=== PATIENT | male | born 1950 | race Caucasian/White ===

== ENCOUNTER 2021-04-25 17:51 | Inpatient (IN) | payer OTHER, MEDICARE ==
[~2021-04-25] VITALS: Ht 185.4 cm; Wt 129.8 kg
--- NOTE | ~2021-04-25 | EMS ---
[address] [address] EMS Patient Care Report Name: JULI COTTRELL Room #: 436-P ADM IN M.R.#: [id number] Admission: 04/25/21 Attend Phys: Edgardo Sanchez MD Discharge: Date of : 48 Report #: [id number] THIS REPORT FOR: //name// Report Transmitted: 04/30/2021 11:03 EMS Care Summary [place], [place]/[facility] Incident [id number] @ 04/25/2021 17:09 Incident Location [address] [place] [address] Patient JERARDO COTTRELL Male, 70 Years 1950 Patient Address [address] [place] [address] Patient History Surgery,Cardiac - Stent, Patient Allergies No known allergies, Patient Medications Cipro, Chief Complaint weakness Disposition Transported No Lights/[place] Dispatch Reason Sick Person Transported To [facility] Narrative Dispatched to an apartment community in regards to a fall. Upon arrival, I saw patient sitting in a chair in the living room with on scene fire crew. Initial [address] [address] EMS Patient Care Report Name: JULI COTTRELL Room #: 436-P ADM IN Eun#: [id number] Admission: 04/25/21 Attend Phys: Edgardo Sanchez MD Discharge: Date of : 48 Report #: [id number] assessment revealed that patient was A&Ox4 and did not appear to be in respiratory distress. Patient's chief complaint was generalized weakness. Family stated that patient is usually able to ambulate unassisted but became weak suddenly and fell to the floor. The on scene fire crew assisted the patient into a chair in the living room. Physical assessment revealed that patient was cool, pale and diaphoretic. Transport was recommended to the patient and patient agreed. Patient was placed into a stair chair and secured. Patient was taken to the cot outside the building. Patient was transferred from the chair to the cot. Patient was then secured and lifted into the ambulance. Treatment rendered was obtaining 2 sets of baseline vital signs including a blood glucose reading, 3 lead ECG monitoring, 12 lead ECG tracing, established vascular access with a saline lock. Patient was transported to [facility] and radio report was given en route. Arrived at destination and patient care was transferred. Initial Vitals @17:35P: 106,R: 20,BP: 114/68,Pain: 0/10,GCS: 15,Glucose: 138,SpO2: 92,Revised Trauma: 12,PR Suspected: true @17:32P: 111,R: 18,BP: 111/64,Pain: 0/10,GCS: 15,SpO2: 95,Revised Trauma: 12, Assessments @17:44MENTAL:Time Oriented,Place Oriented,Person Oriented,Event Oriented,SKIN:Diaphoresis,Pale,Cold,HEENT:LUNG SOUNDS:ABDOMEN:PELVIS//GI:EXTREMITIES:PULSE:NEURO:No Abnormalities, Impression Generalized Weakness Procedures @17:41ALS AssessmentResponse: UnchangedSucceeded@17:41Saline Lock 10cc (18 ga) Site: Antecubital-LeftResponse: UnchangedSucceeded@17:3512-Lead ECGResponse: UnchangedSucceeded Timeline 17:07,Call Received 17:07,Dispatch Notified 17:09,Dispatched 17:10,En Route 17:16,On Scene 17:20,At Patient 17:32,BP: 111/64 M,PULSE: 111,RR: 18 R,SPO2: 95 Ox,ETCO2: ,BG: ,PAIN: 0,GCS: 15, 17:35,12-Lead ECG,Response: UnchangedSucceeded, 17:35,BP: 114/68 M,PULSE: 106,RR: 20 R,SPO2: 92 Ox,ETCO2: ,B,PAIN: 0,GCS: 15, 17:41,ALS Assessment,Response: UnchangedSucceeded, [address] [address] EMS Patient Care Report Name: JULI COTTRELL Room #: 436-P ADM IN M.R.#: [id number] Admission: 04/25/21 Attend Phys: Edgardo Sanchez MD Discharge: Date of : 48 Report #: [id number] 17:41,Saline Lock 10cc 18 ga Site: Antecubital-Left,Response: UnchangedSucceeded, 17:59,Depart Scene 17:59,At Destination 18:06,Call Closed Disclaimer v1.1 Copyright 2020 [employer] This EMS Care Summary contains data elements from the applicable legal record (which may be displayed differently). It is designed to provide pertinent information for the following purposes: continuity of care, clinical quality, and state data reporting. The complete legal record is available to ED staff and administrators of the receiving hospital in [employer]'s Patient Tracker. All data is provided "as is."
[2021-04-25 17:51] VITALS: BP 114/47
[~2021-04-25 17:51] MED LIST: ASPIR 8181 M1 PO; ZOCOR 10 MG TAB10 MG
[2021-04-25] MEDS ORDERED: TAMSULOSIN HCL0.4 MG PO (18:56)
[2021-04-25] MEDS ORDERED: ARMOUR THYROID60 M1 PO (18:56)
[2021-04-25] MEDS ORDERED: COZAAR 25 MG TA25 M1 PO (18:56)
[2021-04-25] MEDS ORDERED: NEURONTIN 300M300 M2 PO (18:57)
[2021-04-25] MEDS ORDERED: METOPROLOL TART25 MG PO (18:57)
[2021-04-25] MEDS ORDERED: HYDROCHLOROTH12.5 M1 PO (18:57)
[2021-04-25] MEDS ORDERED: SIMVASTATIN80 MG PO (18:59)
[2021-04-25] MEDS ORDERED: METFORMIN HCL500 M1 PO (18:59)
[2021-04-25 19:12] LABS: HEMATOCRIT 43.7 % (42.0-52.0); HEMOGLOBIN 13.9 gm/dL (14.0-18.0); MCHC 31.8 g/dL (28.0-37.0); MCV 91.4 fL (80.0-100.0); RBC 4.78 mil/uL (4.50-6.00); RDW 13.9 % (10.5-14.5)
[2021-04-25 19:12] LABS: URINE BILIRUBIN NEGATIVE (Negative); URINE BLOOD 3+ (Negative); URINE CLARITY SL CLOUDY; URINE COLOR YELLOW; URINE GLUCOSE-RANDOM* NEGATIVE (Negative); URINE KETONES NEGATIVE (Negative); URINE NITRITE-REFLEX NEGATIVE (Negative); URINE PROTEIN (DIPSTICK) 1+ (Negative); URINE UROBILINOGEN 0.2 E.U./dl (0.2-1.0)
[2021-04-25 19:17] LABS: URINE LEUKOCYTES-REFLEX 1+ (Negative)
[2021-04-25 19:21] LABS: ANION GAP 13 mmol/L (7-16); BUN 23 mg/dL (7-18); CALCIUM 8.6 mg/dL (8.5-10.1); CHLORIDE 105 mmol/L (98-107); CO2 22 mmol/L (21-32); CREATININE 1.2 mg/dL (0.7-1.3); GLUCOSE 145 mg/dL (74-106); POTASSIUM 4.1 mmol/L (3.5-5.1); SODIUM 140 mmol/L (136-145)
[2021-04-25 19:26] LABS: SQUAMOUS 0-3 Few /LPF (0-3); URINE WBC-REFLEX 6-15 Few /HPF (0-5)
[2021-04-25 19:27] LABS: AMP/METHAMP Negative (Negative); BARBITURATES Negative (Negative); BENZODIAZEPINES Negative (Negative); COCAINE Negative (Negative); METHADONE Negative (Negative); OPIATES Negative (Negative); PCP Negative (Negative); URINE RBC >20 Many /HPF (NONE SEEN)
[2021-04-25 19:30] LABS: ALBUMIN 3.4 g/dL (3.4-5.0); MAGNESIUM 1.6 mg/dL (1.8-2.4); PHOSPHORUS 1.9 mg/dL (2.6-4.7); SALICYLATE < 2.8 mg/dL (2.8-20.0); SGOT 23 U/L (15-37); SGPT 24 U/L (16-63); TOTAL BILIRUBIN 0.6 mg/dL (0.2-1.0); TOTAL PROTEIN 7.2 g/dL (6.4-8.2)
[2021-04-25 22:24] VITALS: BP 117/58
[2021-04-25 22:57] VITALS: BP 127/67
[2021-04-25 23:09] VITALS: BP 149/77
--- NOTE | 2021-04-26 00:36 | NUR ---
PT ADMITTED FROM HOME, LIVES ALONE. PT WAS SITTING IN CHAIR WENT TO GET UP WAS DIZZY AND FELL. PT DOES NOT WEAR O2 AT HOME, NOW ON 4L. REPORTS SOA AND STUFFY NOSE. COVID NEG HAD VACCINE PFIZER. ADMIT WITH UTI AND ALTERED MENTAL STATUS. PT ALERT OX4, BUT FORGETFUL WITH TIME. REPETITIVE QUESTIONS. PT IS FLUSHED, EYES RED, ABD FIRM DISTENDED, BLE EDEMA, REDDENED BLE. PT REPORTS TURP PROCEDURE ON FRIDAY [facility] AGUILAR. PMH QUAD BYPASS, HYPERLIPIDEMIA. PTS CONTACT IS HIS SISTER MELISSA VANG, AND DPOA. PT WANTS TO TALK [facility] REGARDING CODE STATUS. BED ALARM ON. IVF INTACT.
[2021-04-26 02:57] VITALS: BP 126/68
[2021-04-26 07:40] VITALS: BP 135/86
--- NOTE | 2021-04-26 08:18 | EKG ---
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1950 Requested By: Alfonzo Londono Order Number: [id number] MD: Brien Cobian Measurements Intervals [place] Rate: 103 P: 45 WV: 164 QRS: 36 QRSD: 103 T: 185 QT: 330 QTc: 432 Interpretive Statements Sinus tachycardia Atrial premature complex Borderline repolarization abnormality No previous ECG available for comparison Electronically Signed On 04-26-2021 8:17:47 CDT by Brien Cobian [email or web address] <ELECTRONICALLY SIGNED> By: Brien Cobian MD, [facility] 04/26/21 0817 1756 1756 Brien Cobian MD, FACC /EPI
[2021-04-26 15:59] VITALS: BP 108/60
[2021-04-26 19:20] VITALS: BP 122/63
--- NOTE | 2021-04-26 22:55 | NUR ---
PT SITTING UP IN CHAIR. AMBULATING WITH WALKER, O2 PER NC, LUNGS DIMINSHED. IVF INTACT. PT RETAINING URINE, BLADDER SCANNED, STRAIGHT CATHETERIZED 1000MLS. PT STILL URIANTES OFTEN SMALL AMOUNTS. BLE REDDENED SKIN TONE, GENERALIZED EDEMA, ABD DISTENDED FIRM. RESPIRATORY SET UP CPAP. BED ALARM ON. PT HAD HS SNACK.
[2021-04-27 04:16] VITALS: BP 143/74
[2021-04-27 07:15] VITALS: BP 114/62
[2021-04-27 09:50] LABS: HEMATOCRIT 40.3 % (42.0-52.0); HEMOGLOBIN 12.9 gm/dL (14.0-18.0); MCH 29.7 pg (26.0-34.0); MCHC 32.1 g/dL (28.0-37.0); MCV 92.4 fL (80.0-100.0); RBC 4.36 mil/uL (4.50-6.00); RDW 14.1 % (10.5-14.5); WBC 8.4 thou/uL (4.0-11.0)
[2021-04-27 09:56] LABS: CREATININE 1.1 mg/dL (0.7-1.3); POTASSIUM 3.8 mmol/L (3.5-5.1)
[2021-04-27 15:25] VITALS: BP 107/55
--- NOTE | 2021-04-27 17:07 | NUR ---
Chart reviewed and discussed with the care team. Cm attempted to reach pt via phone with out success. PT and OT are working with him. He is being treated for sepsis/uti/pylonephritis. He is on iv atb and had a avila placed today. Recent TURP on 04/23/21 as an outpt. Cultures are pending. No weekend dc is anticipated. Pt was indep with gait and adl's prior to admission and lives alone in a 2nd floor apt. He uses the elevator and occasionally uses a cane. He may need a rwalker at dc and benefit from home health f/u. He is currently on cpap and 4liters of o2, neither of which he has at home. Will follow and reassess for possible HH and dme referrals on Friday pending his progress. Pt notes his sister Itzel is his emergency contact and dpoa if needed. He is covid neg and has had both [employer].
[2021-04-27 19:53] VITALS: BP 124/66
[2021-04-28 04:13] VITALS: BP 127/70
--- NOTE | 2021-04-28 05:31 | NUR ---
WEARING HIS CPAP OVER NIGHT. DENIES PAIN. HE HAS HAD A FEVER TONIGHT. ACETAMINPHEN EFFECTIVE WITH CONTROLLING TEMPS. NO CONCERNS VOICED.
[2021-04-28 07:31] VITALS: BP 137/83
[2021-04-28 15:39] VITALS: BP 142/77
[2021-04-28 19:15] VITALS: BP 111/66
--- NOTE | 2021-04-29 02:53 | NUR ---
PT IS A/O X4 AND IS UP WITH ASSISTANCE. VSS. AFEBRILE THIS SHIFT. MEDICATIONS GIVEN PER MAR. SR/PVC ON THE MONITOR. AYALA IN PLACE AND DRAINING APPROPRIATELY. FALL PRECAUTIONS IN PLACE, CALL LIGHT IS WITHIN REACH.
[2021-04-29 04:34] LABS: ABSOLUTE NEUTROPHILS 3.3 thou/uL (1.4-8.2); BASOPHILS 0.6 % (0.0-2.0); EOSINOPHILS 0.4 % (0.0-3.0); HEMATOCRIT 40.2 % (42.0-52.0); HEMOGLOBIN 13.3 gm/dL (14.0-18.0); LYMPHOCYTES 11.3 % (24.0-44.0); MCH 29.7 pg (26.0-34.0); MCV 90.1 fL (80.0-100.0); MONOCYTES 16.1 % (1.0-8.0); PLATELET COUNT 99 thou/uL (150-400); POLYS 71.6 % (36.0-66.0); RBC 4.46 mil/uL (4.50-6.00); RDW 14.1 % (10.5-14.5); WBC 4.6 thou/uL (4.0-11.0)
[2021-04-29 04:42] VITALS: BP 142/86
[2021-04-29 04:47] LABS: ALBUMIN 2.4 g/dL (3.4-5.0); CALCIUM 7.7 mg/dL (8.5-10.1); CREATININE 0.8 mg/dL (0.7-1.3); MAGNESIUM 1.7 mg/dL (1.8-2.4); POTASSIUM 3.8 mmol/L (3.5-5.1); TOTAL BILIRUBIN 0.6 mg/dL (0.2-1.0); TOTAL PROTEIN 6.2 g/dL (6.4-8.2)
[2021-04-29 07:33] VITALS: BP 140/75
--- NOTE | 2021-04-29 11:15 | NUR ---
ASSUMED PT CARE THIS AM. PT IS ALERT & ORIENTED X4. PT HAS IV SITE ON RFA RUNNING NS @126ML/HR. PT UP WITH ASSIST X2 . PT HAS AYALA CATH IN PLACE. PT IS ACCUCHECK ACHS. PT IS RA DURING DAY AND USES CPAP 4L AT NIGHT. PT IS ON TELE MONITOR ON. PT TOLERATED DIET AND MEDICATION WELL. NO FEVER NOTED THIS AM. WILL CONTINUE TO MONITOR PT. FOLLOW POC.
[2021-04-29 12:10] VITALS: BP 137/81
[2021-04-29 15:29] VITALS: BP 136/76
[2021-04-29 19:24] VITALS: BP 131/76
[2021-04-30 04:09] VITALS: BP 106/99
[2021-04-30 05:03] VITALS: BP 128/79
[2021-04-30 05:26] LABS: HEMATOCRIT 38.8 % (42.0-52.0); HEMOGLOBIN 12.5 gm/dL (14.0-18.0); MCH 29.5 pg (26.0-34.0); MCHC 32.3 g/dL (28.0-37.0); MCV 91.4 fL (80.0-100.0); RBC 4.24 mil/uL (4.50-6.00); RDW 14.3 % (10.5-14.5); WBC 5.4 thou/uL (4.0-11.0)
[2021-04-30 05:44] LABS: CALCIUM 7.8 mg/dL (8.5-10.1); CREATININE 0.8 mg/dL (0.7-1.3); MAGNESIUM 1.9 mg/dL (1.8-2.4); POTASSIUM 3.8 mmol/L (3.5-5.1)
--- NOTE | 2021-04-30 12:48 | NUR ---
ON-GOING ASSESSMENT: CM REVIEWED CHART AND SPOKE WITH PT AT THE BEDSIDE. PER ATTENDING PT IS NEARING DISCHARGE GOALS AND SHOULD BE READY FOR DISCHARGE SOON. PT EVAL IS STILL PENDING AT THIS TIME. CM MET WITH PATIENT AT THE BEDSIDE AND DISCUSSED POSSIBLE HH. PT STATES HE WOULD BE AGREEABLE TO HOME HEALTH SERVICES AND FEEL HE WOULD BENEFIT. PT REPORTS NO PREFERENCE OF HH COMPANY. REFERRAL WAS SENT TO [facility] STATING THEY CAN ACCEPT PT AT TIME OF DISCHARGE. CM WILL CONTINUE TO FOLLOW.
--- NOTE | 2021-04-30 13:15 | NUR ---
RD consult received indicating sister desired wt loss education with pt. Pt admit wiht cardiomegaly, pulmonary edema, sepsis, UTI. Pt reports lives at home, does not cook much and "eats out more than I should". BMI 37.8. BG under control. eating well. Did not appear too interested in any type of nutrition education, stating I know what I should do, I just eat too much. Discussed basics of reducing portions, but did not push nutrition education since pt not really interested. Denied need for education materials. Available if pt has further questions.
--- NOTE | 2021-04-30 18:30 | NUR ---
PT PROGRESSING WELL. LARGE AMT CLEAR YELLOW URNINE. HAD SHOWER. EATING AND DRINKING WELL. NO C/O PAIN. WILL F/U W/ URO AFTER DISCHARGE.
[2021-04-30 19:15] VITALS: BP 131/69
[2021-05-01 04:00] VITALS: BP 127/72
--- NOTE | 2021-05-01 04:56 | NUR ---
RECEIVED CARE OF THIS PATIENT AT 1900. PATIENT ALERT AND ORIENTED X4. UP IN CHAIR PART OF SHIFT. C/O PAIN, MED GIVEN. USES C-PAP AT HS. SLEPT OFF AND ON DURING NIGHT.
[2021-05-01 07:27] VITALS: BP 144/78
[2021-05-01 08:30] VITALS: BP 144/78
[2021-05-01 11:53] VITALS: BP 137/71
--- NOTE | 2021-05-01 13:17 | NUR ---
PT ALERT AND ORIENTED TIMES FOUR, WITH VERY BLUNTED AFFECT. AGITATED THIS MORNING. VSS, AYALA TO DD. PT DENIES PAIN. PT TOLERATES MEDS AND MEALS. PT UP WITH STANDBY ASSIST. PT VERY DISCHARGED FOSCUED. PLAN IS TO DC HOME TODAY WITH HOME HEALTH. PT PROGRESSING TOWRADS POC GOALS.
[2021-05-01] MEDS ORDERED: K-DUR 20 MEQ T20 MEQ PO (14:03)
[2021-05-01] MEDS ORDERED: TYLENOL EXTRA500 MG PO (14:03)
[2021-05-01] MEDS ORDERED: COLACE 100 MG100 MG PO (14:03)
[2021-05-01] MEDS ORDERED: MAGNESIUM400 MG PO (14:03)
[2021-05-01] MEDS ORDERED: CIPRO500 M1 PO (14:03)
--- NOTE | 2021-05-01 14:06 | NUR ---
ON-GOING ASSESSMENT: CM REVIEWED CHART AND SPOKE WITH ATTENDING WHO REPORTS PT WILL DISCHARGE HOME THIS DAY WITH . CM SPOKE WITH PT WHO IS AGREEABLE WITH PLAN AND WANTING TO LEAVE SOON HE CAN HE STATES. CM SPOKE WITH PT ABOUT RECOMMENDATION FROM [facility] FOR A WALKER FOR HOME. PT IS AGREEABLE AND HAS NO PREFERENCE OF DME COMPANY. CM NOTIFIED LIASON AT [employer] WHO VERIFIED INSURANCE AND DELIVERED A WALKER TO PATIENTS ROOM. PT HAD A SAT EXERCISE TEST ORDERED. CM SPOKE WITH ELVIRA IN RT WHO REPORTS PATIENT IS NOT REQUIRING HOME OXYGEN. CM NOTIFIED ATTENDING. AWAITING FINAL DISCHARGE ORDERS AND CM WILL FAX TO [facility]. LIASON FROM [facility] IS AWARE OF DISCHARGE TODAY.
== END 2021-05-01 15:05 | disposition home health service (06) | DRG 871 ==
LOC: ER 17:51 → EROBS 22:11 → 3W 22:11 → 4S 04-28 18:00
PROVIDERS: Emergency Medicine; Physician Assistant; ADMIT Internal Medicine; ATTEND Internal Medicine
PROC: 5A09357 Assistance with Respiratory Ventilation, Less than 24 Consecutive Hours, Continuous Positive Airway Pressure (ICD-10-PCS; principal; 2021-04-26)
PROC: 5A09357 Assistance with Respiratory Ventilation, Less than 24 Consecutive Hours, Continuous Positive Airway Pressure (ICD-10-PCS; 2021-04-29)
PROC: 5A09357 Assistance with Respiratory Ventilation, Less than 24 Consecutive Hours, Continuous Positive Airway Pressure (ICD-10-PCS; 2021-05-01)
DX: A41.52 Sepsis due to Pseudomonas (principal); J96.01 Acute respiratory failure with hypoxia; G92.8 Other toxic encephalopathy; N39.0 Urinary tract infection, site not specified; E11.9 Type 2 diabetes mellitus without complications; E83.42 Hypomagnesemia; E87.6 Hypokalemia; E66.01 Morbid (severe) obesity due to excess calories; R33.9 Retention of urine, unspecified; I10 Essential (primary) hypertension; E78.00 Pure hypercholesterolemia, unspecified; W18.30XA Fall on same level, unspecified, initial encounter; E78.5 Hyperlipidemia, unspecified; I25.10 Atherosclerotic heart disease of native coronary artery without angina pectoris; R53.81 Other malaise; Z04.3 Encounter for examination and observation following other accident; E03.9 Hypothyroidism, unspecified; B96.5 Pseudomonas (aeruginosa) (mallei) (pseudomallei) as the cause of diseases classified elsewhere; Z53.29 Procedure and treatment not carried out because of patient's decision for other reasons; Z20.822 Contact with and (suspected) exposure to COVID-19; Z28.21 Immunization not carried out because of patient refusal; Z68.37 Body mass index [BMI] 37.0-37.9, adult; Y93.89 Activity, other specified; Y92.89 Other specified places as the place of occurrence of the external cause; Y99.8 Other external cause status; Z95.5 Presence of coronary angioplasty implant and graft; Z79.899 Other long term (current) drug therapy; Z88.8 Allergy status to other drugs, medicaments and biological substances; Z90.79 Acquired absence of other genital organ(s); Z95.1 Presence of aortocoronary bypass graft; Z90.49 Acquired absence of other specified parts of digestive tract; Z82.49 Family history of ischemic heart disease and other diseases of the circulatory system; Z88.6 Allergy status to analgesic agent; Z79.84 Long term (current) use of oral hypoglycemic drugs; Z87.442 Personal history of urinary calculi
CPT/HCPCS: 10100; 10879